=== PATIENT | male | born 1955 | race Caucasian/White ===

== ENCOUNTER 2019-08-28 11:46 | Outpatient (CLI) | payer MEDICARE, SELFPAY ==
--- NOTE | 2019-08-28 12:36 | ECG_ITS ---
Measurements Intervals [place] Rate: 55 P: 45 IN: 147 QRS: 25 QRSD: 130 T: 3 QT: 413 QTc: 396 Interpretive Statements SINUS BRADYCARDIA INTRAVENTRICULAR CONDUCTION DELAY BORDERLINE ST-T WAVE ABNORMALITY- INFERIOR LEADS BASELINE ARTIFACT- I, III, AVL BORDERLINE ECG Electronically Signed On 08-28-2019 13:20:56 EGG PROCESSOR by Darrin Storm D.O.
[2019-08-28 13:12] LABS: Basophils Percent Auto 0.5 % (0.2-1.2); Eosinophils Absolute Auto 0.1 K/mm3 (0-0.3); Eosinophils Percent Auto 2.2 % (0-4.4); Hematocrit 40.7 % (42.0-52.0); Hemoglobin 13.3 g/dL (14.0-18.0); Immature Granulocyte Absolute 0.01 K/mm3 (0.00-0.031); Immature Granulocyte Percent A 0.2 % (0-0.5); Lymphocytes Absolute Auto 2.09 K/mm3 (0.9-3.2); Mean Corpuscular HGB Conc 32.7 g/dl (32-36); Mean Corpuscular Volume 91.7 fl (80-100); Monocytes Absolute Auto 0.4 K/mm3 (0.1-0.6); Monocytes Percent Auto 6.7 % (2.6-8.5); Neutrophils Absolute Auto 2.9 K/mm3 (1.3-6.7); Neutrophils Percent Auto 52.4 % (45.5-73.1); Platelet Count Result 161 k/mm3 (150-375); Red Blood Count 4.44 M/mm3 (4.6-6.20); Red Cell Distribution Width 12.3 % (11.5-14.5); White Blood Count 5.5 K/mm3 (4.5-10.0)
[2019-08-28 13:21] LABS: Urine Cotinine NEGATIVE
[2019-08-28 13:25] LABS: Albumin Level 4.3 g/dL (3.5-5.1); Estimated Glomerular Filt Rate > 60; Glucose 93 mg/dL (75-110)
== END 2019-08-28 11:47 | disposition home or self-care (01) ==
LOC: ANHSURGERY 11:53
PROVIDERS: Visit Provider Orthopaedic Surgery
DX: Z01.818 Encounter for other preprocedural examination (principal); M17.10 Unilateral primary osteoarthritis, unspecified knee
CPT/HCPCS: 36415; 80307; 82040; 82565; 82947; 83036; 85025; 93005

== ENCOUNTER 2019-09-20 00:50 | Day surgery (SDC) | payer MEDICARE, SELFPAY ==
[2019-08-28 12:40] VITALS: BP 132/75; PULSE 58; RESP 18; TEMP 37.1; O2SAT 98; BMI 30.2
--- NOTE | 2019-09-18 13:13 | PM.IMHP ---
H&P: HPI History of Present Illness Chief complaint: OA Right Knee Narrative: Dale Murphy is a 63 year old male who presents with a chronic history of right knee pain. Patient has pain with ambulation has start up pain, pain at rest, and night pain. He notes crepitation and swelling in the knee, the pain is worse with activities somewhat relieved by rest. Patient cant stand or walk for long periods, and is limited in his daily activities. Despite a long course of conservative measures including cortisone therapy and anti-inflammatories symptoms continue. X-rays at this time show advanced primarily arthritis on the right knee joint. Patient's discuss further treatment options in detail with Dr. Schneider, the patient would now like to proceed with a right total knee arthroplasty. Drug allergies-no known drug allergies Past surgical history includes meniscal repair of the knee in 2009, cholecystectomy 2011, left total hip arthroplasty 2018 Social history is negative for tobacco or alcohol use 10 point review of systems is otherwise negative [facility] Social History Social History Gender identity (if verbalized by the patient): Male Meds Home Medications and Allergies Home Medications Medication Instructions Recorded Confirmed Type aspirin 81 mg PO DAILY 08/28/19 08/28/19 History cetirizine 10 mg PO DAILY 08/28/19 08/28/19 History diphenhydramine HCl 50 mg PO HS 08/28/19 08/28/19 History hilda root-pyridoxine HCl(B6) 1 cap PO DAILY 08/28/19 08/28/19 History ibuprofen 200 mg PO DAILY 08/28/19 08/28/19 History iron 159 mg PO DAILY 08/28/19 08/28/19 History multivitamin [Multiple Vitamins] 1 tablet PO DAILY 08/28/19 08/28/19 History Allergies Allergy/AdvReac Type Severity Reaction Status Date / Time No Known Allergies Allergy Unverified 08/28/19 12:17 Exam Narrative: Exam Narrative: HEENT exam within normal limits. Heart regular rate and rhythm. Lungs clear to auscultation. Abdomen benign. Extremities showed the patient's right knee to be painful with manipulation and range of motion. Patient has subpatellar crepitation through the arc of motion, mild effusion and swelling, and pain with extremes of motion. There is tenderness along the joint lines with mild varus deformity. Hips move well with negative Stinchfield negative [place]. Neurovascular the patient is intact. Skin is intact without rashes or lesions. Central nervous system exam within normal limits. X-ray showed advanced primary osteoarthritis right knee joint. Assessment and Plan Additional Plan The patient has advanced primary osteoarthritis right knee joint. The patient has discuss risks benefits and limitations and alternatives to surgery in great detail with Dr. Schneider, the patient is ready to proceed with a right total knee arthroplasty. The patient is scheduled undergo surgery September 20, 2019 at [facility] with Dr. Schneider. The patient voiced understanding and agrees with the above plan.
[2019-09-20] VITALS (15 sets, daily range): BP systolic 103–128; BP diastolic 47–64; PULSE 68–91; RESP 12–20; TEMP 36.4–36.8; O2SAT 93–100
--- NOTE | ~2019-09-20 | XR_ITS ---
EXAMINATION: XR knee RT 2V DATE: 09/20/2019 09:32 INDICATION: Postoperative evaluation following right total knee arthroplasty. TECHNIQUE: Anteroposterior and lateral views of the right knee were obtained. COMPARISON: None. FINDINGS: Right total knee arthroplasty with patellar resurfacing appears well seated and in near anatomic alig nment. No fractures identified. Skin kelly and expected postoperative subcutaneous, intramedullar y and intra-articular gas. IMPRESSION: 1. Right total knee arthroplasty, negative for postoperative purposes. Reviewed, dictated and finalized at location A. SANITARIAN
[2019-09-20] MEDS: LACTATED RINGERS 1,000 ML 30 ML IV CONT ×2 (06:55→09:13)
--- NOTE | 2019-09-20 07:01 | WPDANESEPPF ---
Anes - Initial Pre Proc Eval Procedure: Operation Date: 09/20/19 07:30 Proposed Procedures p Right Total Knee Arthroplasty - Tani Schneider MD Date/Time: 09/20/19 07:01 Surgeon: Tani Schneider MD Pre Op Diagnosis: OA Right Knee Patient Data Age: 63 Gender: M Height: 5 ft 10 in Weight: 95.6 kg Last Vital Signs Temp 37.1 C 08/28/19 12:40 Pulse 58 L 08/28/19 12:40 Resp 18 08/28/19 12:40 BP 132/75 08/28/19 12:40 Pulse Ox 98 08/28/19 12:40 Allergies Allergy/AdvReac Type Severity Reaction Status Date / Time No Known Allergies Allergy Unverified 09/20/19 07:03 Home Medications Medication Instructions Recorded Confirmed Type aspirin 81 mg PO DAILY 08/28/19 08/28/19 History cetirizine 10 mg PO DAILY 08/28/19 08/28/19 History diphenhydramine HCl 50 mg PO HS 08/28/19 08/28/19 History hilda root-pyridoxine HCl(B6) 1 cap PO DAILY 08/28/19 08/28/19 History ibuprofen 200 mg PO DAILY 08/28/19 08/28/19 History iron 159 mg PO DAILY 08/28/19 08/28/19 History multivitamin [Multiple Vitamins] 1 tablet PO DAILY 08/28/19 08/28/19 History Patient hx anesthesia problems: none Family hx anesthesia problems: none PMFSH Past Medical History Medical History (Updated 09/20/19 @ 07:05 by Jonathan De La Vega MD) HTN (hypertension) Obesity TAPAN (obstructive sleep apnea) Surgical History Surgical History (Updated 09/20/19 @ 07:05 by Jonathan De La Vega MD) H/O gastric bypass Social History Social History Gender identity (if verbalized by the patient): Male Anes - Eval Final PreProcedure Day of Procedure 09/20/19 07:01 Patient weight: obese Heart: regular rate and rhythm Lungs: clear to auscultation Airway: Mallampati scale class II Neurological: alert and oriented Last oral intake: >/= 8 hours ASA classification: II Emergent: no Anesthetic plan: proceed Anesthesia type and monitoring: general LMA and standard monitoring Informed Consent: The patient's anesthetic plan and its attendant risks and benefits were discussed with the patient/family/POA. Questions were solicited and answers provided to the satisfaction of the patient/family/POA.
--- NOTE | 2019-09-20 07:11 | WPDHPUPDATE1 ---
History and Physical Update Update Date/Time: 09/20/19 07:11 History and Physical has been reviewed, including an updated exam of the patient. There are NO changes in the patient's condition. Risks, benefits, and alternatives have been discussed and questions answered. Patient agrees to proceed with procedure.
--- NOTE | 2019-09-20 07:20 | WPDANESPNB ---
Anes - Peripheral Nerve Block Date/Time: 09/20/19 07:20 I have discussed with the patient/family/POA the placement of a peripheral nerve block for post-operative pain management, including associated risks, benefits, complications, and side effects. Alternative methods of post-operative analgesia were detailed. Questions were solicited and answers provided to the satisfaction of the patient/family/POA. Time-Out: A pre-procedural Time-Out was completed immediately before starting the procedure and confirmed: Patient Identification, Site, Procedure, Patient Position and the Availability of Requisite Equipment. Clinical Indications: Acute post-operative pain management requested by the operative surgeon. Nerve Block Insertion Note Anes-nerve block: femoral left Patient position: supine Skin prep: chlorhexidine Needle: 22 gauge, stimulating, insulated echogenic needle. Needle length: 50 mm Technique: nerve stimulation lost at (mA) (0.35) Injectate: bupivacaine 0.5% with epi 5 mcg/ml (30cc) and other (decadron 8mg) Observations: tolerated well Complications: none Procedure start time:: 714 Procedure end time:: 719
[2019-09-20] MEDS: ceFAZolin 2 GM/D5W 50 ML 2 GM/50 ML BAG IVPB (07:23)
[2019-09-20] MEDS: GENTAMICIN BONE CEMENT REFOBACIN 1 EACH TOPICAL (08:24)
--- NOTE | 2019-09-20 08:44 | P.OP_ITS ---
Procedure Note - Detailed Date of procedure: 09/20/19 Pre-op diagnosis: OA Right Knee Post-op diagnosis: same Procedure performed: Right TKA Implants: 75 Tibia 70 Femur 37 Patella 10 Poly Anesthesia: GETA Surgeon: Tani Schneider MD Pipe Bowls Paint Trimmer: Lemuel Estimated blood loss (mL): 200 Tourniquet time (min): 35 Drains: No Packing: No Pathology: none sent Complications: No immediate complications Condition: stable Disposition: PACU
--- NOTE | 2019-09-20 08:54 | P.OP_ITS ---
Procedure Note - Detailed Date of procedure: 09/20/19 Pre-op diagnosis: OA Right Knee Post-op diagnosis: same Procedure performed: [Right] total knee arthroplasty Description of procedure: The patient was brought to the operating room. General anesthetic was administered. Placed on the operating table and sterilely prepped and draped in usual manner. A longitudinal incision was made. Tourniquet inflated to 300 mmHg for a total of [time] minutes. Dissection carried down to the fascia. Medial parapatellar incision was made and the patella subluxated laterally. Patella cut from [26] to [16] mm and sized for a [37] mm button. The tibia cut perpendicular to the long axis and femur cut in 5 degrees of valgus, a [70] femur trialed. [75] tibia was felt to fit the best. The soft tissue balanced, hemostasis obtained. All [address], [75] tibia, [70] femur, [37] mm patella, and [10] mm poly. Motion was 0-125 degrees with good stablility and flexion and extension. The wound was closed with #2 vicryl, 2-0 Vicryl and kelly. Anesthesia: GETA Surgeon: Tani Schneider MD Chief Privacy Officer: Jeancarlos Hdez Estimated blood loss (mL): 200 Drains: No Packing: No Pathology: none sent Complications: No immediate complications Condition: stable Disposition: PACU Findings: arthritis
--- NOTE | 2019-09-20 10:00 | SUR.PHASEI ---
1000 FAMILY UPDATED IN THE WAITING ROOM.
[2019-09-20] MEDS: HYDROMORPHONE HCL 1 MG/ML INJ 0.5 MG IV PUSH ×2 (10:29→10:36)
[2019-09-20] MEDS: SODIUM CHLORIDE 0.9% IV 1,000 ML 125 ML IV CONT (13:11)
[2019-09-20] MEDS: DOCUSATE SODIUM 100 MG CAPSULE PO ×2 (13:12→18:30)
--- NOTE | 2019-09-20 15:29 | PM.IMCN ---
Assessment and Plan Assessment and plan (1) H/O total knee replacement: Code(s): Z96.659 - Presence of unspecified artificial knee joint Status: Acute Assessment and Plan: Total right knee arthroplasty today by Dr. Schneider. The patient has already been up in the chair and then back to bed. Pain management per Ortho. DVT prophylaxis per ortho. Patient has SCDs and is also on Xarelto. Patient plans on going home to recover with his . He plans to hopefully go home tomorrow. Postop care per Ortho. (2) Chronic allergic rhinitis: Code(s): J30.9 - Allergic rhinitis, unspecified Status: Chronic Assessment and Plan: Continue with Zyrtec Additional Plan The patient used to have a history of being prediabetic, hypertension, and obstructive sleep apnea. Patient is no longer treated for any though since he had his gastric bypass surgery lost 100 lb. No further medical management needed from our team. I thank you for this opportunity to be able to see this patient. HPI Data of Consult Consult date: 09/20/19 Requesting Physician: Tani Schneider MD Primary Care Provider: Jeancarlos Overton Consult Narrative Narrative: Dale Murphy is a 63 year old male was a history of severe degenerative joint disease. The patient has had surgery on his left hip last year and recovered well. The patient stated that he has tried physical therapy by walking at [place]. He took anti for on inflammatory. He did not do any injections this time. He was suffering severely specially with activity. The patient was found to be bone on bone. He has chronic right knee pain that is worse with start-up pain, pain at rest, and night pain. The patient had limited activities due to this discomfort. Patient has advanced primary arthritis to the right knee joint. The patient underwent a right total knee arthroplasty today per Dr. Schneider. See operative note. Estimated blood loss was noted as 200 according to the notes.. Patient is sitting up in chair without any complaints at this time. He is comfortable and not complaining of any discomfort at this time. Date of consult 09/20/2019. Review of Systems Review of Systems: Narrative: Patient has chronic allergic rhinitis. He takes Zyrtec year-round. Patient has no other medical problems at this point. At 1 point the patient was 100 lb heavier and had been on medication for high blood pressure. The patient stated that he also was prediabetic at 1 time. He had a gastric bypass and lost 100 lb. He no longer needs to take any medications for the blood pressure or diabetes. All systems reviewed & are unremarkable except as noted in HPI and below Constitutional: Constitutional: Reports as per HPI and Reports no additional constitutional complaints Eyes: Eyes: Reports as per HPI and Reports no additional eye complaints ENT: Reports system reviewed and no additional complaints, except as documented and Reports Normal hearing present Cardiovascular: Cardiovascular: Reports no additional cardiovascular complaints Respiratory: Respiratory: Reports no additional respiratory complaints and Reports no additional respiratory complaints Gastrointestinal: Gastrointestinal: Reports as per HPI and Reports no additional gastrointestinal complaints Musculoskeletal: Musculoskeletal: Reports no additional musculoskeletal complaints Integumentary/Breasts: Skin/Breast: Reports system reviewed and no additional complaints, except as docu and Reports as per HPI Neurologic: Reports system reviewed and no additional complaints, except as documented, Reports as per HPI and Reports Normal hearing present Psychiatric: Psychiatric: Reports no additional psychiatric complaints and Reports as per HPI Endocrine: Endocrine: Reports no additional endocrine complaints Hematologic/Lymphatic: Hematologic/Lymphatic: Reports no additional hematologic/lymphatic complaints Allergic/Immunologic: Allergic
[2019-09-20] MEDS: RIVAROXABAN 10 MG TABLET PO (18:30)
[2019-09-20] MEDS: CELECOXIB 200 MG CAPSULE PO (18:31)
[2019-09-20] MEDS: LORATADINE 10 MG TABLET PO (18:31)
[2019-09-21 02:00] VITALS: BP 111/54; PULSE 70; RESP 16; TEMP 36.3; O2SAT 98
[2019-09-21 06:00] VITALS: BP 107/47; PULSE 73; RESP 16; TEMP 36.7; O2SAT 100
[2019-09-21 06:09] LABS: Basophils Percent Auto 0.1 % (0.2-1.2); Eosinophils Percent Auto 0.2 % (0-4.4); Hematocrit 30.9 % (42.0-52.0); Hemoglobin 10.5 g/dL (14.0-18.0); Immature Granulocyte Absolute 0.02 K/mm3 (0.00-0.031); Immature Granulocyte Percent A 0.2 % (0-0.5); Lymphocytes Absolute Auto 1.97 K/mm3 (0.9-3.2); Mean Corpuscular Hemoglobin 30.6 pg (26-34); Mean Corpuscular Volume 90.1 fl (80-100); Mean Platelet Volume 10.6 fl (7.4-10.4); Monocytes Absolute Auto 0.9 K/mm3 (0.1-0.6); Monocytes Percent Auto 9.8 % (2.6-8.5); Neutrophils Absolute Auto 6.4 K/mm3 (1.3-6.7); Neutrophils Percent Auto 68.7 % (45.5-73.1); Platelet Count Result 125 k/mm3 (150-375); Red Blood Count 3.43 M/mm3 (4.6-6.20); Red Cell Distribution Width 12.7 % (11.5-14.5); White Blood Count 9.4 K/mm3 (4.5-10.0)
[2019-09-21 06:34] LABS: Blood Urea Nitrogen 14 mg/dL (9-20); Calcium 8.2 mg/dL (8.4-10.2); Carbon Dioxide 26 mmol/L (22-30); Chloride 103 mmol/L (98-107); Estimated CRCL calculation 147 ml/min; Estimated Glomerular Filt Rate > 60; Glucose 102 mg/dL (75-110); Potassium 3.7 mmol/L (3.4-5.0); Sodium 138 mmol/L (137-145)
[2019-09-21] MEDS: DOCUSATE SODIUM 100 MG CAPSULE PO (08:09)
[2019-09-21] MEDS: CELECOXIB 200 MG CAPSULE PO (08:09)
[2019-09-21] MEDS: LORATADINE 10 MG TABLET PO (08:09)
--- NOTE | 2019-09-21 08:46 | WPDANESPN ---
Anes - Prog Note Post-Op Date/Time: 09/21/19 08:46 Cardiovascular status: normal Respiratory status: normal Airway patency: baseline Mental status: baseline Post-Op hydration status: normal Vital Signs: Last Vital Signs Temp 36.7 C 09/21/19 06:00 Pulse 73 09/21/19 06:00 Resp 16 09/21/19 06:00 BP 107/47 L 09/21/19 06:00 Pulse Ox 100 09/21/19 06:00 I/O: Intake & Output 09/20/19 09/21/19 09/21/19 23:59 07:59 15:59 Intake Total 2000 1100 Output Total 900 1725 Balance 1100 -625 Laboratory Tests 09/21/19 05:55 09/21/19 05:55 09/20/19 09/21/19 09/21/19 06:46 05:55 05:55 WBC 9.4 RBC 3.43 L Hgb 10.5 L Hct 30.9 L MCV 90.1 MCH 30.6 MCHC 34.0 RDW 12.7 Plt Count 125 L MPV 10.6 H Immature Gran % (Auto) 0.2 Neut % (Auto) 68.7 Lymph % (Auto) 21.0 [place] % (Auto) 9.8 H Eos % (Auto) 0.2 Baso % (Auto) 0.1 L Lymph # (Auto) 1.97 [place] # (Auto) 0.9 H Eos # (Auto) 0.0 Baso # (Auto) 0.0 Abs Immat Gran (auto) 0.02 Absolute Neuts (auto) 6.4 Absolute Nucleated RBC 0.0 Nucleated RBC % 0.0 Sodium 138 Potassium 3.7 Chloride 103 Carbon Dioxide 26 BUN 14 Creatinine 0.50 L Estim Creat Clear Calc 147 Estimated GFR > 60 Glucose 102 Calcium 8.2 L Blood Type A Positive Antibody Screen Negative Post-procedural complaints: none Patient Feedback: Patient satisfied with anesthetic care.
[2019-09-21 10:37] VITALS: BP 115/62; PULSE 83; RESP 16; TEMP 36.4; O2SAT 100
[2019-09-21 14:16] VITALS: BP 140/55; PULSE 99; RESP 18; TEMP 37.1; O2SAT 100
[2019-09-21] MEDS: MORPHINE SULFATE 4 MG/ML INJ IV PUSH (14:16)
--- NOTE | 2019-09-21 15:26 | PM.DS ---
DS: Diagnosis Admitting Diagnosis Admitting Diagnosis: Unilateral primary osteoarthritis, right knee DS: Summary Time Spent with Patient Time attestation: Total time spent providing and/or coordinating discharge services: 10 mins Exam Narrative: Exam Narrative: Vital signs stable afebrile neurovascular is intact wound is clean and dry calves are benign patient ambulates independently with a walker doing well postop day 1 without constitutional symptoms or other complaints today. DS: Data Data Completed and Pending Labs on day of discharge: Labs from last 24 hours 09/21/19 09/21/19 05:55 05:55 WBC 9.4 RBC 3.43 L Hgb 10.5 L Hct 30.9 L MCV 90.1 MCH 30.6 MCHC 34.0 RDW 12.7 Plt Count 125 L MPV 10.6 H Immature Gran % (Auto) 0.2 Neut % (Auto) 68.7 Lymph % (Auto) 21.0 [place] % (Auto) 9.8 H Eos % (Auto) 0.2 Baso % (Auto) 0.1 L Lymph # (Auto) 1.97 [place] # (Auto) 0.9 H Eos # (Auto) 0.0 Baso # (Auto) 0.0 Abs Immat Gran (auto) 0.02 Absolute Neuts (auto) 6.4 Absolute Nucleated RBC 0.0 Nucleated RBC % 0.0 Sodium 138 Potassium 3.7 Chloride 103 Carbon Dioxide 26 BUN 14 Creatinine 0.50 L Estim Creat Clear Calc 147 Estimated GFR > 60 Glucose 102 Calcium 8.2 L Discharge Plan Discharge Patient Disposition: Home, Self-Care Discharge Instructions: Discharge home general diet activity as tolerated weight-bearing as tolerated right lower extremity with walker home with prescriptions for Xarelto and [place] on the chart, when Xarelto course is completed go to aspirin 325 mg 1 tablet p.o. b.i.d. x1 month then discontinue, follow-up 2 weeks postop for staple removal and wound recheck, change dressing daily keep clean and dry watch for evidence of infection or drainage, start physical therapy for total knee protocol beginning early next week, call the office immediately at [phone] for any problems difficulties or questions. Patient Instructions: Pain Management (DC), Knee Replacement (DC) Stand Alone Forms: Avoid NSAIDs Follow-up/Referrals: Jeancarlos Hdez PA [Physician Distribution Spec] - Discharge Medications: New hydrocodone-acetaminophen 5-325 mg Tablet 1 tab PO Q4H PRN (Reason: Moderate Pain (4-6)) Qty: 50 RF: 0 Xarelto 10 mg Tablet 10 mg PO DAILY@17 Qty: 13 RF: 0 Continued multivitamin [Multiple Vitamins] Tablet 1 tablet PO DAILY RF: 0 diphenhydramine HCl 50 mg Capsule 50 mg PO HS RF: 0 cetirizine 10 mg Tablet 10 mg PO DAILY RF: 0 iron 159 mg (45 mg iron) Tablet Extended Release 159 mg PO DAILY RF: 0 hilda root-pyridoxine HCl(B6) 325-25 mg Capsule 1 cap PO DAILY RF: 0 Discontinued ibuprofen 200 mg Tablet 200 mg PO DAILY RF: 0 aspirin 81 mg Tablet,Chewable 81 mg PO DAILY RF: 0
--- NOTE | 2019-09-21 15:37 | PCPTNOTE ---
Patient refused treatment this session due to anticipated discharge.
== END 2019-09-21 16:20 | disposition home or self-care (01) ==
LOC: ANHSURGERY 06:16 → ANH3MEDSUR 11:00
PROVIDERS: Visit Provider Orthopaedic Surgery
PROC: (CPT 27447; principal; 2019-09-20 07:30)
DX: M17.11 Unilateral primary osteoarthritis, right knee (principal); G89.18 Other acute postprocedural pain; I10 Essential (primary) hypertension; G47.33 Obstructive sleep apnea (adult) (pediatric); Z98.84 Bariatric surgery status; Z79.82 Long term (current) use of aspirin; E66.9 Obesity, unspecified; Z68.30 Body mass index [BMI] 30.0-30.9, adult
CPT/HCPCS: 27447; 64447; 36415; 73560; 80048; 85025; 86850; 86900; 86901; 97110; 97116; 97161; 97165; 97530; A9270; C1713; C1776; J0171; J0690; J1100; J1170; J1885; J2250; J2270; J2405; J2704; J2795; J3010; J3370; J7030; J7120

== ENCOUNTER 2021-12-23 11:46 | Outpatient (CLI) | payer MEDICARE, SELFPAY ==
--- NOTE | 2021-12-23 12:31 | ECG_ITS ---
Measurements Intervals [place] Rate: 68 P: 54 OR: 171 QRS: 47 QRSD: 129 T: -7 QT: 379 QTc: 405 Interpretive Statements SINUS RHYTHM MINIMAL Q WAVES- INFERIOR LEADS BORDERLINE ST-T WAVE ABNORMALITY- INFERIOR LEADS BASELINE ARTIFACT- I, II, III, AVR, AVL, AVF BORDERLINE ECG Electronically Signed On 12-23-2021 13:07:30 CDT by Darrin Storm D.O.
[2021-12-23 13:05] LABS: Basophils Percent Auto 0.5 % (0.2-1.2); Eosinophils Absolute Auto 0.1 K/mm3 (0-0.3); Eosinophils Percent Auto 1.6 % (0-4.4); Hematocrit 40.7 % (42.0-52.0); Hemoglobin 13.8 g/dL (14.0-18.0); Immature Granulocyte Absolute 0.01 K/mm3 (0.00-0.031); Immature Granulocyte Percent A 0.2 % (0-0.5); Lymphocytes Absolute Auto 2.07 K/mm3 (0.9-3.2); Mean Corpuscular HGB Conc 33.9 g/dl (32-36); Mean Corpuscular Hemoglobin 30.9 pg (26-34); Mean Corpuscular Volume 91.1 fl (80-100); Mean Platelet Volume 10.7 fl (7.4-10.4); Monocytes Absolute Auto 0.5 K/mm3 (0.1-0.6); Monocytes Percent Auto 7.4 % (2.6-8.5); Neutrophils Absolute Auto 3.4 K/mm3 (1.3-6.7); Neutrophils Percent Auto 56.3 % (45.5-73.1); Platelet Count Result 197 k/mm3 (150-375); Red Blood Count 4.47 M/mm3 (4.6-6.20); Red Cell Distribution Width 13.7 % (11.5-14.5); White Blood Count 6.1 K/mm3 (4.5-10.0)
[2021-12-23 13:06] LABS: Urine Cotinine NEGATIVE
[2021-12-23 13:08] LABS: Albumin Level 4.3 g/dL (3.5-5.1); Estimated Glomerular Filt Rate > 60; Glucose 102 mg/dL (65-110)
== END 2021-12-23 11:47 | disposition home or self-care (01) ==
PROVIDERS: Visit Provider Orthopaedic Surgery
DX: Z01.818 Encounter for other preprocedural examination (principal); M16.11 Unilateral primary osteoarthritis, right hip
CPT/HCPCS: 80307; 82040; 82565; 82947; 83036; 85025; 87081; 93005

== ENCOUNTER 2022-01-06 00:10 | Day surgery (SDC) | payer MEDICARE, SELFPAY ==
--- NOTE | 2021-12-23 11:50 | PC.NURSE ---
Report to the Outpatient Waiting Room, entrance under the green pavilion located off [facility], at time _0600_ on date _01/06/22_. OR Time: _0730__. - You and your visitor will be asked a series of questions to screen for COVID 19 for your protection. - Only one visitor is allowed at this time. - The patient visitor is requested to leave or wait in car when not with patient. - A mask is required within the hospital. VISITING HOURS 10AM-8PM Patients may have clear liquids (water, carbonated beverages, clear teas, apple juice) until 3 hours prior to surgery (0430 AM) with a maximum of 20 ounces. - No food from midnight until time of surgery Take the following medications with a SIP of water the morning of surgery: _NONE_ Medications to discontinue per ANESTHESIA - ALL VITAMINS AND SUPPLEMENTS 3 DAYS PRIOR TO SURGERY, Date to take last dose 01/02/22_ Please no deodorant, or body powder the day of surgery. No jewelry (including any body piercings) or valuables the day of surgery, leave them at home. Please take a shower or bath the night before, or the morning of, surgery with an antibacterial soap. Wear comfortable, loose fitting clothing. - Jewelry must be removed prior to entering the operating room. Rings and piercings that are not removed may be cut off. - The hospital will not accept responsibility for valuables. - Please leave all valuables, including medications, at home the day of surgery. If you are going home after surgery, a licensed truck driver heavy must drive you home. - NO public transportation without another adult. - We recommend that an adult stay with you for 24 hours following discharge. - We also recommend that you do not drive, make important decision, drink alcoholic beverages, or take any drugs that were not prescribed by your health care provider for at least 24 hours after your discharge time. Follow any additional instructions given to you from your surgeon. If you or anyone in your household have experienced Covid symptoms in the past week, please notify your surgeon or the nurse liaison at the phone number below for possible testing. Instructions given to ____PT and asked if any additional questions and then verbalized understanding. Patient advised to call surgeon office or pre surgery nurse liaison [phone] if any additional questions.
[2021-12-23 12:03] VITALS: BP 152/78; PULSE 70; RESP 20; TEMP 37.1; O2SAT 96; BMI 34.3
--- NOTE | 2022-01-05 13:32 | WPDANESEPPF ---
Anes - Initial Pre Proc Eval Procedure: Operation Date: 01/06/22 07:30 Proposed Procedures p Right Total Hip Arthroplasty - Juan Rose MD Date/Time: 01/05/22 13:32 Surgeon: Juan Rose MD Pre Op Diagnosis: OA right hip Patient Data Age: 66 Gender: M Height: 1.78 m Weight: 108.5 kg Last Vital Signs Temp 37.1 C 12/23/21 12:03 Pulse 70 12/23/21 12:03 Resp 20 12/23/21 12:03 BP 152/78 H 12/23/21 12:03 Pulse Ox 96 12/23/21 12:03 O2 Del Method Room Air 12/23/21 12:03 Allergies Allergy/AdvReac Type Severity Reaction Status Date / Time No Known Allergies Allergy Verified 01/06/22 06:12 Home Medications Medication Instructions Recorded Confirmed Type cetirizine 10 mg tablet 10 mg PO QAM 08/28/19 01/06/22 History multivitamin (Multiple Vitamins 1 tablet PO QA 08/28/19 01/06/22 History tablet) CoQ-10 1 tab-cap QAM 12/23/21 01/06/22 History K2d3 1 tab-cap QAM 12/23/21 01/06/22 History ascorbic acid (vitamin C) 500 mg 500 mg PO QAM 12/23/21 01/06/22 History tablet (Vitamin C) fish, borage, flaxseed oils-omega 1 cap PO QAM 12/23/21 01/06/22 History 3,6,9 cb #1 400 mg-400 mg-400 mg cap ([place] 3-6-9) glucosamine-chondroitin 1 tab-cap QAM 12/23/21 01/06/22 History magnesium 500 mg tablet 15 mg PO QAM 12/23/21 01/06/22 History vitamin B complex 1 tablet PO QAM 12/23/21 01/06/22 History zinc 50 mg tablet 50 mg PO QAM 12/23/21 01/06/22 History polysaccharide iron complex 150 mg 150 mg PO DAILY #60 caps 12/24/21 01/06/22 Rx iron capsule rivaroxaban 10 mg tablet (Xarelto) 10 mg PO DAILY PE prophalaxis S/P 12/30/21 01/06/22 Rx Surgery #14 tabs ECG: Date of Service: 12/23/21 Procedure(s): CA 12 lead EKG Accession Number(s): [id number] cc: ~ ? Measurements Intervals? [place]? Rate: ? 68 ? P:? 54 MD: ? 171? QRS:? 47 QRSD: ? 129? T:? -7 QT: ? 379? QTc:? 405? Interpretive Statements SINUS RHYTHM MINIMAL Q WAVES- INFERIOR LEADS BORDERLINE ST-T WAVE ABNORMALITY- INFERIOR LEADS BASELINE ARTIFACT- I, II, III, AVR, AVL, AVF BORDERLINE ECG Electronically Signed On 12-23-2021 13:07:30 CDT by Darrin Storm D.O. Patient hx anesthesia problems: none Family hx anesthesia problems: none Results Review: All pre-operative results and documents have been reviewed as part of the pre-operative evaluation. [facility] Past Medical History Medical History Arthritis of right hip Chronic allergic rhinitis HTN (hypertension) Patient no longer takes any medications since he lost 100 lb Obesity TAPAN (obstructive sleep apnea) Patient no longer uses a CPAP machine since he lost 100 lb. Surgical History Surgical History H/O gastric bypass He lost 100 lb H/O lateral meniscus repair of right knee 2009 H/O total hip arthroplasty Left H/O total knee replacement Right September 2019 Dr. Schneider Hx of cholecystectomy 2012 Family History Family History Mother HTN (hypertension), malignant Father Malignant melanoma Daughter Motor vehicle accident She is at the age of 17 due to motor vehicle accident. Social History Social History Social History: The patient retired from [employer] on then he also retired from [employer]. He and his travel quite a bit. He has 1 surviving daughter and 1 grandson. His Antonia is the durable power director of neurology for healthcare the patient is a full code. Nonsmoker. patient stated that he used to drink heavily when he w
[2022-01-06] VITALS (16 sets, daily range): BP systolic 113–146; BP diastolic 47–82; PULSE 68–90; RESP 11–20; TEMP 36.3–37.4; O2SAT 96–100
--- NOTE | ~2022-01-06 | XR_ITS ---
XR hip RT min 2V DATE: 01/06/2022 10:40 INDICATION: Total hip replacement TECHNIQUE: Postoperative portable AP and crosstable lateral views of right hip COMPARISON: 12/30/2021 right hip FINDINGS: There is resection of the right femoral head and neck and placement of right total hip pros thesis. Acetabular and femoral components are in normal alignment. There is expected postoperative mild subcutaneous emphysema. IMPRESSION: Right total hip arthroplasty Reviewed, dictated and finalized at location [facility].
--- NOTE | ~2022-01-06 | XR_ITS ---
XR surgery orthopedic DATE: 01/06/2022 09:19 INDICATION: Right total hip arthroplasty TECHNIQUE: Single portable intraoperative AP radiograph of the right hip COMPARISON: None FINDINGS: Status post right femoral head and neck resection. There is an acetabular prosthesis in joel ce and trocar in the proximal right femur. Expected intraoperative subcutaneous emphysema is noted. IMPRESSION: Right total hip arthroplasty intraoperative radiograph Reviewed, dictated and finalized at [facility]. Reviewed, dictated and finalized at location [facility].
[2022-01-06] MEDS: ACETAMINOPHEN 500 MG TABLET 1000 MG PO ×3 (06:29→23:09)
[2022-01-06] MEDS: LACTATED RINGERS 1,000 ML 30 ML IV CONT ×2 (06:35→10:23)
--- NOTE | 2022-01-06 07:15 | WPDHPUPDATE1 ---
History and Physical Update Update Date/Time: 01/06/22 07:15 History and Physical has been reviewed, including an updated exam of the patient. There are NO changes in the patient's condition. Risks, benefits, and alternatives have been discussed and questions answered. Patient agrees to proceed with procedure.
[2022-01-06] MEDS: TRANEXAMIC ACID 1,000MG/ISO100 1,000 MG/100 ML BAG 200 MG IVPB (07:18)
[2022-01-06] MEDS: ceFAZolin 2 GM/D5W 50 ML 2 GM/50 ML BAG IVPB ×3 (07:25→23:09)
[2022-01-06] MEDS: ceFAZolin SODIUM 1 GM VIAL IV PUSH (09:28)
[2022-01-06] MEDS: fentaNYL CITRATE INJ (*CRX) 100 MCG/2 ML VIAL 25 MCG IV PUSH ×8 (10:48→11:22)
--- NOTE | 2022-01-06 10:49 | W.PM.PROC2 ---
Procedure Note - Detailed Date of Procedure 01/06/22 Pre-op Diagnosis OA right hip Post-op Diagnosis Same Procedure Performed Right total hip replacement -anterolateral approach Surgeon Juan Rose MD Regulatory Analyst Luis Angel Solo Description of Procedure The patient was identified and proper site identified. He was taken to the operating room, transferred to the OR table and after general anesthetic induction and intubation, position in the left lateral decubitus position in the usual manner for a right hip procedure. He was secured with a padded hip rests and care was taken to properly pad and position his torso and extremities. Right lower extremity was prepped and draped in usual sterile fashion. Curvilinear incision was made over the greater trochanter. Subcutaneous tissue sharply dissected down to the gluteus fascia and ITB band which divided in line with the incision. The anterior half the abductors were dissected off of the greater trochanter sharply and the capsule. Capsule was divided in an inverted T fashion. The hip was dislocated and neck cut made about two fingerbreadths above the level lesser trochanter. Head fragment was removed. The acetabulum was cleared of debris and then sequentially reamed up to 57 millimeters for a 58 G7 cup which was impacted in about 40? of abduction, 20? of anteversion there is also further secured with a single screw. Liner for the acetabulum was placed after lavage of the wound. Attention was turned to the femur. This was sequentially broached up to 14 millimeters. Intraoperative x-ray showed good fit and fill of the femoral component and good position of the acetabulum. The real 14 high offset femur was impacted into place in about 15? of anteversion. Hip was reduced and stability assessed. The construct with a 36+ three head gave good holiness of leg lengths with good stability so a real 36+ three ceramic head was attached to the neck of the femoral component after it had been cleaned and dried. After final thorough lavage of the joint the hip was reduced. 3 minute Betadine soak followed by at an additional lavage was carried out. Periarticular tissues were infiltrated with 60 milliliters of the arthroplasty solution. The capsule was repaired with 2. Vicryl suture. Abductors repaired back to the greater trochanter with 5. Ethibond suture passed through a bony bridge. The deep fascia was reapproximated with looped PDS suture as were the deeper layers of subcu. Skin reapproximated with 3-0 Monocryl, 2-0 Quill and tissue adhesive. Sterile dressing was applied. He tolerated the procedure well. He was returned to a supine position, awakened, extubated and taken to recovery area in stable condition. There were no known intraoperative complications. Estimated blood loss was 400 milliliters. He received 250 back via Cell Saver. He received perioperative antibiotics. Estimated Blood Loss -400.0 (250 ml via Cell Saver) Drains No Pathology None sent Complications No immediate complications Disposition PACU
--- NOTE | 2022-01-06 12:28 | ADMGEN ---
This patient, Dale Murphy, was admitted to 2 Medical Room 253-01. Patient/family oriented to hospital policies and general routines including ID bracelet, bed and alarms, visiting hours, pain management, procedures, bathroom and other care routines, personal items, smoking policy, room service/diet, and visiting hours. Information on how to activate the Rapid Response Team has been discussed. Patient/Family are encouraged to report perceived risks to care and to ask questions if they do not understand what they are told or what they should do. Report received from CAMILA Kamara.
[2022-01-06] MEDS: KETOROLAC 15 MG/ML VIAL (*BKC) IV PUSH ×3 (12:37→23:08)
[2022-01-06] MEDS: oxyCODONE HCL (*CRX) 5 MG TAB IR PO ×4 (13:58→23:10)
[2022-01-06] MEDS: SENNA/DOCUSATE SODIUM TABLET 2 TAB PO (16:55)
[2022-01-06] MEDS: FAMOTIDINE 20 MG TABLET PO (20:19)
[2022-01-07] MEDS: oxyCODONE HCL (*CRX) 5 MG TAB IR PO ×4 (01:57→11:21)
[2022-01-07 04:18] VITALS: BP 112/55; PULSE 87; RESP 17; TEMP 36.8; O2SAT 100
[2022-01-07] MEDS: ACETAMINOPHEN 500 MG TABLET 1000 MG PO (05:14)
[2022-01-07] MEDS: KETOROLAC 15 MG/ML VIAL (*BKC) IV PUSH (05:14)
[2022-01-07] MEDS: ceFAZolin 2 GM/D5W 50 ML 2 GM/50 ML BAG IVPB (06:28)
--- NOTE | 2022-01-07 07:24 | PM.DS ---
DS: Admitting Diagnosis Discharge Date January 07, 2022 Admitting Diagnosis Osteoarthritis right hip DS: Discharge Diagnosis Discharge Diagnosis (1) History of hip replacement: Code(s): Z96.649 - Presence of unspecified artificial hip joint Status: Acute Plan Plan to discharge patient home today. Follow-up will be in two weeks. Instructions reviewed. Is to call with any questions prior to follow-up. Encouraged to read and follow-up all discharge instructions. DS: Summary Hospital Course Reason for hospitalization: Observation following outpatient procedure Hospital Course: After the patient's surgery, he was admitted to the floor for observation. Made good progress overnight. Tolerating therapy. Being discharged home today. Status at Discharge Functional status at discharge: uses cane/walker Overall status at discharge: patient is not back to baseline Time Spent with Patient Time attestation: Total time spent providing and/or coordinating discharge services: Time spent: Less than 30 minutes Exam Const: General: cooperative, no acute distress and alert Nutritional Appearance: other Orientation/consciousness: patient oriented x3 Limitations: no limitations HENMT: Head: normal to inspection Chest: Chest palpation & inspection: normal inspection of the chest Resp: Effort & Inspection: normal respiratory effort and able to speak in complete sentences GI: Inspection: other (Nondistended) Neuro: General: patient oriented x3 Cognition (Neuro): normal cognition Speech: normal speech Extrem: General: normal to inspection Other: Exam of right hip wound shows dry incision, minimal swelling and bruising. Grossly motor and sensory function right lower extremity intact. Calves negative. Psych: Appearance: grossly normal Mental Status: mental status grossly normal Radiology Reports: Comments: XR hip RT min 2V DATE: 01/06/2022 10:40 INDICATION: Total hip replacement? TECHNIQUE: Postoperative portable AP and crosstable lateral views of right hip? COMPARISON: 12/30/2021 right hip? FINDINGS: There is resection of the right femoral head and neck and placement of right total hip prosthesis. Acetabular and femoral components are in normal alignment. There is expected postoperative mild subcutaneous emphysema.? IMPRESSION: Right total hip arthroplasty? Reviewed, dictated and finalized at location A. DS: Data Data Completed and Pending Labs on day of discharge: Labs from last 24 hours 01/06/22 06:29 Blood Type A Positive Antibody Screen Negative Imaging Attestation: I personally reviewed and interpreted this imaging study as follows: (Reviewed intraoperative and postop films and agree.) Discharge Plan Discharge Patient Disposition: Home, Self-Care Discharge Instructions: 3 times daily for 20 minutes each time, reclining in bed with ice packs over the incision and a pillow underneath the calf of the affected leg, not under the knee. Your wound is glued so it is okay to remove the dressing this Wednesday (January 09) get into the shower and get the wound wet. Do not get into a bathtub. You will be using your walker 100% of the time for eight weeks. You can start using a cane after that visit. Be sure to read through all the information that came from a my office and the hospital. Most of the answers you will need can be found that material. Call the office with any questions that you cannot find answers to, or concerns you may have. After the Xarelto is completed, start taking one coated 325 mg aspirin daily and do this for four more weeks. Please call [facility] at as soon as possible to arrange for/verify your follow-up appointment to be seen in 2 weeks. Also, call the office with any orthopedic/surgical related questions prior to follow
[2022-01-07] MEDS: polyethylene glycoL 3350 17 GM POWD.PACK PO (08:32)
[2022-01-07] MEDS: ASCORBIC ACID 500 MG TABLET PO (08:33)
[2022-01-07] MEDS: OMEGA 3 POLYUNSAT FATTY ACIDS 1 GM CAP PO (08:33)
[2022-01-07] MEDS: SENNA/DOCUSATE SODIUM TABLET 2 TAB PO (08:33)
[2022-01-07] MEDS: POLYSACCHARIDE IRON COMPLEX 150 MG CAPSULE PO (08:33)
[2022-01-07] MEDS: FAMOTIDINE 20 MG TABLET PO (08:34)
[2022-01-07] MEDS: MULTIVITAMINS THERAPEUTIC TAB (*BKC) 1 TABLET PO (08:34)
[2022-01-07] MEDS: LORATADINE 10 MG TABLET PO (08:34)
[2022-01-07] MEDS: VITAMIN B COMPLEX CAPSULE 1 CAP PO (08:34)
[2022-01-07] MEDS: ZINC SULFATE 220 MG CAPSULE PO (08:34)
[2022-01-07] MEDS: RIVAROXABAN 10 MG TABLET PO (08:34)
[2022-01-07] MEDS: MAGNESIUM OXIDE 200 MG TABLET PO (08:34)
--- NOTE | 2022-01-07 09:14 | WPDANESPN ---
Anes - Prog Note Post-Op Date/Time: 01/07/22 09:14 Cardiovascular status: normal Respiratory status: normal Airway patency: baseline Mental status: baseline Post-Op hydration status: normal Vital Signs: Last Vital Signs Temp 36.8 C 01/07/22 04:18 Pulse 87 01/07/22 04:18 Resp 17 01/07/22 04:18 BP 112/55 L 01/07/22 04:18 Pulse Ox 100 01/07/22 04:18 O2 Del Method Room Air 01/06/22 21:20 O2 Flow Rate 8 01/06/22 10:50 Pain Score (VAS): 2 I/O: Intake & Output 01/06/22 01/07/22 01/07/22 23:59 07:59 15:59 Intake Total 290 550 240 Balance 290 550 240 Patient Feedback: Patient satisfied with anesthetic care.
[2022-01-07 10:19] VITALS: BP 123/60; PULSE 91; RESP 16; TEMP 36.8; O2SAT 96
== END 2022-01-07 11:28 | disposition home or self-care (01) ==
LOC: ANHSURGERY 06:01 → ANH2MED 11:56
PROVIDERS: Visit Provider Orthopaedic Surgery
PROC: (CPT 27130; principal; 2022-01-06 07:30)
DX: M16.11 Unilateral primary osteoarthritis, right hip (principal); E66.9 Obesity, unspecified; Z68.33 Body mass index [BMI] 33.0-33.9, adult
CPT/HCPCS: 27130; 36415; 73502; 80307; 82040; 82565; 82947; 83036; 85025; 86850; 86900; 86901; 87081; 93005; 97110; 97116; 97161; 97165; 97530; 97535; A9270; C1776; J0171; J0690; J1100; J1170; J1885; J2250; J2270; J2370; J2405; J2704; J2710; J2795; J3010; J7040; J7120

== ENCOUNTER 2022-01-29 08:25 | Outpatient (CLI) | payer MEDICARE, SELFPAY ==
--- NOTE | ~2022-01-29 | US_ITS ---
US venous doppler LE RT DATE: 01/29/2022 09:03 INDICATION: Right leg pain and swelling TECHNIQUE: Real-time and color flow imaging and Doppler analysis of the veins of the right lower extr emity COMPARISON: None FINDINGS: There is thrombosis of the right peroneal veins. There is spontaneous and phasic flow and normal augmentation and color flow signal and normal kristine toya of the right common femoral, femoral, popliteal and posterior tibial veins. The greater saphenou s vein is patent. IMPRESSION: Deep venous thrombosis of right peroneal veins Dr. Perea telephoned the report to Dr. Rose on 01/29/2022 at 0920 hours. Reviewed, dictated and finalized at [facility]. Reviewed, dictated and finalized at location B.
== END 2022-01-29 08:26 | disposition home or self-care (01) ==
PROVIDERS: Visit Provider Orthopaedic Surgery
DX: I82.451 Acute embolism and thrombosis of right peroneal vein (principal); M79.89 Other specified soft tissue disorders
CPT/HCPCS: 93971